=== PATIENT | male | born 1955 | race Caucasian/White ===

== ENCOUNTER 2019-05-31 15:33 | Observation (INO) | payer OTHER ==
[~2019-05-31] VITALS: Ht 188 cm; Wt 106.1 kg
[2019-05-31] MEDS ORDERED: ASPIRIN 81 MG CHEW TAB PO ONE ×2 (15:45→19:15)
[2019-05-31 16:08] LABS: BASOPHILS % 0.2 % (0.0-1.0); EOSINOPHILS # (AUTO) 0.1 (0.0-0.4); EOSINOPHILS % 1.4 % (0.0-6.0); HEMATOCRIT 49.7 % (38.2-49.6); HEMOGLOBIN 16.4 g/dL (14.0-18.0); LYMPHOCYTES # (AUTO) 1.7 (1.0-3.2); LYMPHOCYTES % 39.9 % (18.0-39.1); MEAN CORPUSCULAR HEMOGLOBIN 27.3 pg (28-32); MEAN CORPUSCULAR VOLUME 82.7 fL (81-99); MONOCYTES # (AUTO) 0.4 (0.2-0.8); MONOCYTES % 9.4 % (4.4-11.3); NEUTROPHILS # (AUTO) 2.1 (2.1-6.9); NEUTROPHILS % 48.9 % (38.7-80.0); PLATELET COUNT 187 x10e3/uL (140-360); RED BLOOD COUNT 6.01 x10e6/uL (4.3-5.7); RED CELL DISTRIBUTION WIDTH 13.7 % (11.7-14.4)
[2019-05-31 16:19] LABS: INR 1.01; PROTHROMBIN TIME 13.9 seconds (11.9-14.5)
[2019-05-31 16:32] LABS: ALANINE AMINOTRANSFERASE 42 IU/L (0-55); ALBUMIN 4.4 g/dL (3.5-5.0); ALBUMIN/GLOBULIN RATIO 1.6 (0.8-2.0); ALKALINE PHOSPHATASE 71 IU/L (40-150); ANION GAP 13.3 mmol/L (8-16); BLOOD UREA NITROGEN 9 mg/dL (7-26); BUN/CREATININE RATIO 11 (6-25); CARBON DIOXIDE 22 mmol/L (22-29); CHLORIDE 108 mmol/L (98-107); CREATINE KINASE 169 IU/L (30-200); CREATININE, SERUM 0.85 mg/dL (0.72-1.25); EST GLOMERULAR FILTRATION RATE > 60 ML/MIN (60-); GLUCOSE 99 mg/dL (74-118); POTASSIUM 4.3 mmol/L (3.5-5.1); SODIUM 139 mmol/L (136-145)
--- NOTE | 2019-05-31 16:34 | Diagnostic Imaging Report ---
Exam: Chest radiograph Clinical History: Chest pain Findings: The cardiomediastinal silhouette and lungs are normal. The regional skeleton and soft tissue are unremarkable. There is no evidence of pleural effusion or pneumothorax. Impression: No radiographic evidence of acute cardiopulmonary disease. Signed by: Dr. Irvin Rueda MD on 05/31/2019 4:31 PM
[2019-05-31 16:52] LABS: THYROID STIMULATING HORMONE 3.599 uIU/mL (0.350-4.940)
[2019-05-31] MEDS ORDERED: MORPHINE SULFATE 2 MG/ML SYR 1ML IV PRN (19:15)
[2019-05-31] MEDS ORDERED: ONDANSETRON HCL INJ 2MG/ML 2ML 2 MG/ML VIAL IV PRN (19:15)
[2019-05-31] MEDS ORDERED: MORPHINE SULFATE INJ 4 MG/ML INJ 1ML IV PRN (19:30)
[2019-05-31] MEDS ORDERED: PRALUENT P150 MG/1 M SC (19:41)
[2019-05-31] MEDS ORDERED: METOPROLOL TART50 MG PO (19:41)
[2019-05-31] MEDS ORDERED: CLOPIDOGREL75 MG PO (19:41)
[2019-05-31] MEDS ORDERED: ISOSORBIDE MONO60 MG PO (19:41)
[2019-05-31] MEDS ORDERED: ATORVASTATIN CA80 MG PO (19:41)
--- OUTSIDE RECORDS SUMMARY | 2019-05-31 19:41 | XMS REPORT ---
Author Author [facility] Address Unknown Phone Unavailable Care Team Providers Care Neuroscience Director Na Name Role Phone Isaiah STOCKTON Unavailable Unavailable Problems This patient has no known problems. Allergies, Adverse Reactions, Alerts This patient has no known allergies or adverse reactions. Medications This patient has no known medications. Results Test Description Test Time Test Comments Text Results Atomic Results Result Comments CHEST SINGLE (PORTABLE) 2019-05-31 16:29:00 [place] [address] Patient Name: GAGE EMERSON MR #: [id number] : 1955 Age/Sex: 63/M Req #: [id number] Adm Physician: Ordered by: GIRMA LAMBERT BUSINESS CONTROL MANAGER Report #: [id number] Location: ER Room/Bed: Procedure: [id number] DX/CHEST SINGLE (PORTABLE) Exam Date: 05/31/19 Exam Time: 1600 REPORT STATUS: Signed Exam: Chest radiograph Clinical History: Chest pain Findings: The cardiomediastinal silhouette and lungs are normal. The regional skeleton and soft tissue are unremarkable. There is no evidence of pleural effusion or pneumothorax. Impression: No radiographic evidence of acute cardiopulmonary disease. Signed by: Dr. Irvin Rueda MD on 05/31/2019 4:31 PM Dictated By: MYCHAL RUEDA MD [id number] Transcribed By: EMELIA on 05/31/19 1631 COPY TO: GIRMA LAMBERT NP
--- OUTSIDE RECORDS SUMMARY | 2019-05-31 19:41 | XMS REPORT | Summary of Care ---
Author Author Nicole Bellamy M.A. Unknown Address Unknown Phone Unavailable Care Team Providers Care Steam Trap Man Name Role Phone STANTON SOTO M.D. Unavailable Unavailable STANTON SOTO MD Unavailable Unavailable Unavailable Unavailable Functional Status Name Dates Details Functional status health issues are not documented Status: Name Dates Details Cognitive status health issues are not documented Status: Problems Name Dates Details Bilateral impacted cerumen (380.4, H61.23) Status: Active Facial swelling (784.2, R22.0) Status: Active Medications Name Dates Details Metoprolol Tartrate TABS Active Plavix TABS * Refills: 0 Active Aspirin TABS * Refills: 0 Active Isosorbide Mononitrate TABS * Refills: 0 Active Lipitor TABS * Refills: 0 Active Niaspan TBCR * Refills: 0 Active Praluent SOSY * Refills: 0 Active Allergies and Adverse Reactions Name Dates Details No Known Drug Allergies (Allergy) Status: Active Past Medical History Name Dates Details History of arthritis (V13.4, Z87.39) Status: Resolved History of cardiac disorder (V12.50, Z86.79) Status: Resolved History of hypertension (V12.59, Z86.79) Status: Resolved Procedures Procedure Dates Details History of Heart surgery Completed History of Back surgery Completed Immunization Name Dates Details Immunizations not documented Family History Name Dates Details Family history of malignant neoplasm (V16.9, Z80.9) Comments: Family History Status: Active Family history of cardiac disorder (V17.49, Z82.49) Comments: Family History Status: Active Social History Name Dates Details - Status: Name Dates Details Never smoker Vital Signs Date Test Result Details [id number] BP Systolic 122 mm[Hg] Status: BP Diastolic 75 mm[Hg] Status: Height 74 in Status: Weight 223.125 lb Status: Body Mass Index Calculated 28.65 kg/m2 Status: Body Surface Area Calculated 2.28 m2 Status: Heart Rate 61 /min Status: Results Date Description Value Details Results not documented Plan of Care Name Dates Details Planned Observations Planned Goals not documented Interventions Provided Plan* 1. Cerumen removed . 2. Observe the facial lump. FU as needed. Instructions Name Dates Details Instructions not documented Encounters Appointment; STANTON SOTO M.D. Encounter Diagnosis: Problem not documented On: 30-Jan-2017 15:30 Appointment; STANTON SOTO M.D. Encounter Diagnosis: Problem not documented On: 03-Aug-2018 13:00
[2019-05-31] MEDS ORDERED: HYDRALAZINE HCL 20 MG/ML VIAL IV PRN (20:15)
[2019-05-31 21:02] VITALS: BP 144/93
--- NOTE | 2019-05-31 21:02 | NUR ---
CONSULT CALLED TO MD DÍAZ
[2019-05-31 21:44] VITALS: BP 144/93
[2019-05-31 22:00] VITALS: BP 144/93
--- NOTE | 2019-05-31 23:16 | NUR ---
PATIENT REQUESTING AMBIEN FOR SLEEP, SPOKE WITH MD GROVES, NEW ORDERS RECEIVED.
[2019-05-31 23:28] VITALS: BP 134/77
[2019-05-31] MEDS: ZOLPIDEM TARTRATE 5 MG TAB PO PRN (23:33)
[2019-06-01] VITALS (7 sets, daily range): BP systolic 115–141; BP diastolic 69–88
[2019-06-01 00:26] LABS: CREATINE KINASE MB 1.9 ng/mL (0-5.0)
[2019-06-01 06:41] LABS: CREATINE KINASE 154 IU/L (30-200)
--- NOTE | 2019-06-01 07:08 | NUR ---
Received patient and a/ox, no distress, denies chest pains at this time, on continuous tele monitor, call light within reach, will monitor.
[2019-06-01] MEDS ORDERED: ACETAMINOPHEN 325 MG TAB PO PRN (08:45)
[2019-06-01] MEDS: ISOSORBIDE MONONITRATE 30 MG TAB CR PO SCH ×3 (09:24→21:10)
[2019-06-01] MEDS: METOPROLOL TARTRATE 50 MG TAB PO SCH ×2 (09:24→16:31)
--- NOTE | 2019-06-01 11:07 | History and Physical ---
HISTORY OF PRESENT ILLNESS: The patient is a 63-year-old male, who had a past medical history positive for coronary artery disease status post CABG in 1998, hypertension, hyperlipidemia, borderline diabetic. The patient came here with chest pain when he was shopping at [employer], pain lasted more than half an hour. He came to the emergency room. EKG came back normal. Troponin x3 completely negative. REVIEW OF SYSTEMS: CARDIOVASCULAR: He had chest pain, which he described a tightness, radiated to the neck. No palpitation. No shortness of breath associated with chest pain. RESPIRATORY: No shortness of breath. No cough. GASTROINTESTINAL: No nausea. No vomiting. No diarrhea. GENITOURINARY: No frequency. No dysuria. ALLERGIES: NOT ALLERGIC TO ANY MEDICATION. PAST MEDICAL HISTORY: Coronary artery disease status post CABG in 1998, hypertension, hyperlipidemia, borderline diabetic. SOCIAL HISTORY: He drinks occasionally. He does not smoke. PHYSICAL EXAMINATION: HEART: Showed regular rhythm. Normal S1, S2 sound. LUNGS: Clear bilaterally. ABDOMEN: Soft. EXTREMITIES: Show no edema. LABORATORY DATA: Chest x-ray completely negative. EKG showed normal sinus rhythm, no evidence of any ST-segment elevation or depression. He has sinus bradycardia around 50 per minute. Troponin x3 completely negative. On the CBC; white blood count 4.26, hemoglobin is 16.4, hematocrit 49.7, and platelet count 187,000. On the complete metabolic panel; sodium 139, potassium 4.3, chloride 108, CO2 of 22, anion gap 13.3, BUN 9, creatinine 0.85, glucose 99, calcium 9.0, total bilirubin 0.8, AST 25, ALT 42, alkaline phosphatase 71, creatine kinase 169. Three sets of cardiac enzymes completely negative. B type natriuretic peptide less than 10. Total protein 7.2, albumin 4.4, globulin 2.8, TSH 3.59, PT 13.9, INR 1.01, PTT 31.0. Chest x-ray showed no evidence of any cardiopulmonary abnormalities. FINAL IMPRESSION: 1. Coronary artery disease, unstable angina. 2. Hypertension. 3. Hyperlipidemia. 4. Diabetes mellitus type 2, apparently borderline. 5. Status post coronary artery bypass graft. PLAN OF TREATMENT: We are going to resume the home medications he was taking. He received an aspirin. He was on Plavix 75 mg daily. He is on hydralazine 10 mg IV q.4 hours as needed for hypertension, metoprolol 50 mg twice a day, morphine 4 mg IV q.4 hours as needed for severe pain, Zofran 4 mg IV q.4 hours as needed for nausea and vomiting, Ambien 5 mg at night p.r.n. for sleep. He is also taking Lipitor 80 mg daily, isosorbide mononitrate 60 mg three times a day. We are going to also put him on Tylenol 325 mg every 4 hours as needed for pain or fever. Cardiology consult with Dr. Ocampo has been requested. So far, as I said, the cardiac enzymes are negative. EKG is unremarkable, so most likely is a stable angina. Dr. Cristiano Ocampo will see the patient and decide if he had to have any further cardiac workup. MD KAREN Zaragoza/SUKUMAR /[id number]
[2019-06-01 12:37] LABS: CHOL/HDL RATIO 2.2 (3.9-4.7)
--- NOTE | 2019-06-01 14:20 | NUR ---
Visit made by the Spiritual Care Department Pastoral Visitor, Regla Abdalla. PV provided ashes for David Thursday. Pastoral Visitor informed pt/family of the scope of [employer] Wheel [employer] and availability. BRUON NOLEN Parole Officer Spiritual Care Department O: [phone]
--- NOTE | 2019-06-01 14:23 | NUR ---
Rounds by chip applying machine tender and wants to do a heart cath but patient wants to get to his chip applying machine tender first and then there will be a determination made about heart cath tomorrow.
[2019-06-01] MEDS ORDERED: ONDANSETRON HCL 4 MG ORAL DISINTEGRATING TAB PO PRN (15:15)
--- NOTE | 2019-06-01 18:53 | NUR ---
Rounds by Dr. Klein and cleared patient to be discharged to follow up further work up with his road mixer operator at the medical center.
--- NOTE | 2019-06-01 19:59 | Consultation ---
DATE OF CONSULTATION: 06/01/2019 REASON FOR CONSULTATION: Chest pain. CHIEF COMPLAINT: Chest pain. HISTORY OF PRESENT ILLNESS: This is a 63-year-old male with history of CAD, status post CABG in 1998, PCI in 2006, hypertension, hyperlipidemia, chronic back pain. The patient presents to [facility] ER with complaints of chest pain. Cardiac enzymes negative x3. Cardiology was consulted to evaluate the patient. The patient is seen in room with at bedside. The patient reports he was heading to [facility] to roll picker his prescriptions, in which he had some chest pain, proceeded to go to pharmacist, in which he noticed his chest pain worsened, pressure, tightness, radiating up to his jaw with shortness of breath. At the pharmacist, he requested nitroglycerin, however, he was not given any nitroglycerin, he was given aspirin 325, in which he went to the ER for further evaluation. The patient reports that the pain lasted about for 1 hour and relieved since then. The patient reports being well established with Dr. Bryce Pinon, Cardiology, last visit was March 2019. Currently, the patient is chest pain- free. He reports his last episode was initially when he came into the ER. Currently, he is comfortable without any shortness of breath. The patient reports being compliant with all his medications. PAST MEDICAL HISTORY: CAD, status post CABG in 1998, PCI in 2006, hypertension, hyperlipidemia, chronic back pain. PAST SURGICAL HISTORY: CABG, stenting 1998, PCI 2006, back surgery, and right knee surgery. SOCIAL HISTORY: He is . 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 He denies any tobacco use. Positive for social alcohol use. FAMILY HISTORY: Mother with a history of CAD. Father with a history of esophageal cancer and history of coronary artery disease. HOME MEDICATIONS: Include Praluent 150 mg every two weeks, atorvastatin 80 mg daily, clopidogrel 75 mg daily, isosorbide mononitrate 60 mg t.i.d., metoprolol 50 mg b.i.d., Niaspan 500 mg b.i.d., aspirin 81 mg b.i.d. ALLERGIES: NO KNOWN ALLERGIES. REVIEW OF SYSTEMS: GENERAL: Denies any weight changes, fatigue, weakness, fevers, chills, or night sweats. SKIN: No rash or sores. HEENT: No nausea, vomiting, vision changes, blurred vision, double vision, epistaxis, sore throat, swollen neck, or stiff neck. CARDIAC: Positive chest pain as above. Positive dyspnea on exertion. Denies any orthopnea, PND, or lower extremity edema. RESPIRATORY: Positive for shortness of breath initially with chest pain. Denies any wheezing, coughing, or hemoptysis. GI: Reports good appetite. No nausea, vomiting, diarrhea, constipation, melena, hematemesis, or tarry bloody stools. URINARY: Denies any dysuria or hematuria. VASCULAR: Denies any lower extremity edema or claudication. MUSCULOSKELETAL: Denies any muscle weakness. Positive for generalized joint pains. HEMATOLOGY: Denies any anemia or bruising. ENDOCRINE: Denies any heat or cold intolerance, polyuria, polydipsia, or polyphagia. PHYSICAL EXAMINATION: VITAL SIGNS: Height 74 inches, weight 234 pounds. Temperature 97.5, pulse 59, respiratory rate 16, blood pressure 133/56, pulse ox 97% on room air. GENERAL: Appears stated age, reliable informant, in no acute distress. SKIN: No rashes or bruises noted. HEENT AND NECK: : Normocephalic. Pupils equal and reactive. Extraocular movements intact. Trachea midline. No JVD. No carotid bruit. Oral mucosa pink. HEART: Regular rate and rhythm. Sternotomy scar noted. PMI about 5th left intercostal space. LUNGS: Bilateral breath sounds, clear to auscultation. Good airway entry and exit. ABDOMEN: Soft, nontender, nondistended. No organomegaly noted. MUSCULOSKELETAL: Good muscle strength throughout. No lower extremity swelling noted. VASCULAR: +2 radial pulses bilaterally, +2 DP/PT pulses bilaterally. NEUROLOGIC: Cranial nerves II through XII seem intact. LABORATORY DATA: White count 4, hemoglobin 16, hematocrit 49, platelets 187. Chemistry; sodium 139, potassium 4.3, chloride 108, BUN 9, creatinine 0.8. Troponin 0.004, next 0.008, next less than 0.001. BNP less than 10. TSH 3.5. Chest x- ray showing no acute abnormalities. EKG showing sinus kallie with heart rate of 52. ASSESSMENT: 1. Coronary artery disease, status post coronary artery bypass graft with stable angina. 2. Hypertension. 3. Hyperlipidemia. PLAN: The patient presents to [facility] with complaints of chest pain, has been resolved since prior initial episode. Cardiac enzymes strongly negative x3. Long discussion with patient and at bedside regarding workup, ischemic evaluation, and options. The patient is hesitant to have any procedures or any workup here since he is well established with Dr. Bryce Pinon. For now, we will recommend medical therapy with his anti-platelet, statin, beta-matthew, nitrate, and we advised the patient to follow up with Dr. Bryce Pinon since he is primary principal developer and he is well established with him, and currently the patient without any chest pains. Thank you very much for this consult. SEEN AND EVALUATED, AGREE WITH NOTE Dictated by Robert Brunner NP Andrae Ocampo MD DC/SUKUMAR /[id number]
[2019-06-01] MEDS ORDERED: ATORVASTATIN 40 MG TAB PO SCH (21:00)
[2019-06-01] MEDS ORDERED: CLOPIDOGREL BISULFATE 75 MG TAB PO SCH (21:00)
--- NOTE | 2019-06-01 21:10 | NUR ---
PATIENT IS IN STABLE CONDITION AOX4, NO SIGNS OF DISTRESS NOTED. FAMILY MEMBER IS AT BEDSIDE AND PATIENT VOICES NO PAIN AT THIS TIME. PATIENT VOICED UNDERSTANDING OF POSSIBLE DISCHARGE INSTRUCTIONS FOR IN THE MORNING TO BE RELAYED TO DAY NURSE. BED IS IN LOWEST POSITION, SIDE RAILS ARE UP, CALL LIGHT WITHIN REACH, WILL CONTINUE TO MONITOR.
[2019-06-01] MEDS: ZOLPIDEM TARTRATE 5 MG TAB PO PRN (21:45)
[2019-06-02 01:34] VITALS: BP 130/86
[2019-06-02 05:25] VITALS: BP 110/76
--- NOTE | 2019-06-02 07:00 | NUR ---
The pt. was received from off-going nurse with pending discharge home in order to make it to his cardio for stress test.
[2019-06-02 07:39] VITALS: BP 132/86
[2019-06-02] MEDS: ISOSORBIDE MONONITRATE 30 MG TAB CR PO SCH (08:19)
[2019-06-02] MEDS: METOPROLOL TARTRATE 50 MG TAB PO SCH (08:20)
[2019-06-02 08:38] VITALS: BP 132/86
[2019-06-02] MEDS ORDERED: ASPIRIN 81 MG ENTERIC COATED PO SCH (09:00)
--- NOTE | 2019-06-02 12:53 | Discharge Summary ---
HOSPITAL COURSE: A 63-year-old male with past medical history positive for coronary artery disease, hypertension, hyperlipidemia, diabetes mellitus type 2. The patient came with chest pain, three sets of cardiac enzymes completely negative. Echocardiogram showed ejection fraction of 40%-50%. No evidence of any pericardial effusion. No evidence of any severe valvular abnormality. EKG shows sinus bradycardia. No evidence of any ST-segment elevation or depression. The patient was seen by Dr. Ocampo, Cardiology. The patient declined any type of procedure here. He want to see his precision assembler today, so he is going home and instructed to continue his antiplatelet, beta-blockers and lipid-lowering agents. The patient is chest pain-free right now. PHYSICAL EXAMINATION: VITAL SIGNS: Temperature today is 97.2, heart rate 57 per minute, respiratory rate 18 per minute, blood pressure 132/86. HEART: Showed regular rhythm. Normal S1, S2 sound. LUNGS: Clear bilaterally. ABDOMEN: Soft. LABORATORY DATA: On the CBC; white blood count 4.26, hemoglobin 16.4, hematocrit 49.7, and platelet count 187,000. Troponin x3 completely negative. On the BMP; sodium 139, potassium 4.3, chloride 108, CO2 22, BUN 9, creatinine 0.85, glucose 99. FINAL IMPRESSION: 1. Coronary artery disease with episode of chest pain. 2. Hypertension. 3. Hyperlipidemia. 4. Diabetes mellitus type 2. On the discharge medication, he will continue with Lipitor 80 mg daily, Plavix 75 mg daily, isosorbide mononitrate, which is Imdur 60 mg three times a day. He is also taking metoprolol 50 mg twice a day. MD KAREN Zaragoza/SUKUMAR /[id number]
== END 2019-06-02 08:40 | disposition home or self-care (01) ==
LOC: ER 15:33 → ERHOLD 19:10 → MED/SURG 20:36
PROVIDERS: ADMIT Internal Medicine; ATTEND Internal Medicine
DX: I25.118 Atherosclerotic heart disease of native coronary artery with other forms of angina pectoris (principal); I10 Essential (primary) hypertension; E78.5 Hyperlipidemia, unspecified; Z95.1 Presence of aortocoronary bypass graft; G89.29 Other chronic pain; E11.9 Type 2 diabetes mellitus without complications
CPT/HCPCS: 36415 ×2; 71045; 80053; 80061; 82550 ×2; 82553 ×2; 83880; 84443; 84484 ×2; 85025; 85610; 85730; 93005; 93306; 99284; G0378 ×3